=== PATIENT | female | born 1980 | race Caucasian/White ===

== ENCOUNTER 2024-09-03 19:36 | Emergency (ER) | payer SELFPAY ==
[2024-09-03 19:40] VITALS: BP 165/110
[2024-09-03 20:21] VITALS: BMI 25.8
[2024-09-03 22:20] VITALS: BP 155/92
[2024-09-03 22:26] LABS: Glucose - Point of Care 80 mg/dl (70-99)
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
[2024-09-04 00:41] LABS: % Basophils 0.5 % (0-2); % Eosinophils 3.2 % (0-6); % Immature Granulocytes 0.5 % (0-0.5); % Lymphocytes 34.7 % (20.5-51.1); % Monocytes 5.1 % (1.7-9.3); Absolute Basophils 0.1 10^3/uL (0-0.2); Absolute Eosinophils 0.4 10^3/uL (0-0.7); Absolute Immature Granulocytes 0.1 10^3/uL (0-0.05); Absolute Lymphocytes 4.3 10^3/uL (1.2-3.4); Absolute Monocytes 0.6 10^3/uL (0.1-0.6); Hematocrit 43.9 % (37.0-47.0); Hemoglobin 15.5 g/dL (12.0-16.0); Mean Corp Hgb Conc. 35.3 g/dL (33.0-37.0); Mean Corpuscular Volume 84.9 fL (81.0-99.0); Mean Platelet Volume 10.8 fL (7.4-10.4); Nucleated Red Blood Cells % 0 %; Platelet Count 270 10^3/uL (130-400); Red Blood Cell Count 5.17 10^6/uL (4.20-5.40); Red Cell Dist. Width 12.8 % (11.5-14.5); White Blood Cell Count 12.5 10^3/uL (4.8-10.8)
[2024-09-04 00:47] VITALS: BP 135/84
[2024-09-04 01:00] VITALS: BP 139/89
[2024-09-04 01:01] LABS: HCG, Serum Qualitative Screen Negative
[2024-09-04 01:06] LABS: ALT (SGPT) 38 U/L (0-35); AST (SGOT) 33 U/L (14-36); Albumin 4.7 g/dl (3.5-5.0); Alkaline Phosphatase 69 U/L (38-126); Blood Urea Nitrogen 16 mg/dl (7-17); Calcium 9.5 mg/dl (8.4-10.2); Carbon Dioxide 24 mmol/L (22-30); Chloride 108 mmol/L (98-107); Estimated Creatinine Clearance 72 ml/min; Glucose 75 mg/dl (70-99); Potassium 4.5 mmol/L (3.5-5.1); Sodium 140 mmol/L (135-145); Total Bilirubin 0.7 mg/dl (0.2-1.3); Total Protein 8.1 g/dl (6.3-8.2); eGFR > 60.00
[2024-09-04 01:46] VITALS: BP 148/91
== END 2024-09-04 01:55 | disposition home or self-care (01) ==
LOC: EMR 19:36
PROVIDERS: EMERGENCY PHYSICIAN Student in an Organized Health Care Education/Training Program
DX: D17.0 Benign lipomatous neoplasm of skin and subcutaneous tissue of head, face and neck (principal); F41.9 Anxiety disorder, unspecified; F17.200 Nicotine dependence, unspecified, uncomplicated
CPT/HCPCS: 99284; 70490; 80053; 82962; 84703; 85025

== ENCOUNTER 2024-11-12 13:06 | Emergency (ER) | payer OTHER, SELFPAY ==
[2024-11-12 13:06] VITALS: BMI 29.9
[2024-11-12 13:19] VITALS: BP 129/88
[2024-11-12 14:17] LABS: Hematocrit 42.6 % (37.0-47.0); Hemoglobin 15.1 g/dL (12.0-16.0); Mean Corp Hgb Conc. 35.4 g/dL (33.0-37.0); Mean Corpuscular Volume 82.7 fL (81.0-99.0); Platelet Count 264 10^3/uL (130-400); Red Cell Dist. Width 13.2 % (11.5-14.5)
--- NOTE | 2024-11-12 14:20 | ED.GENMED ---
History of Present Illness
<Laura Blunt PA-C - Last Filed: 11/12/24 22:12>
General
Chief Complaint: Flank Pain
Source: patient
Exam Limitations: none
Time Seen by Provider: 11/12/24 14:00
History of Present Illness
History of Present Illness:
44yoF with a history of prurigo nodularis, anxiety, depression, and recent biopsy of neck mass that she has had for several years 2 days ago at [place] presenting for evaluation of multiple complaints. Patient reports having fevers and chills for
the past 7 to 10 days. She is unable to tell me when her last fever was but it was at least 24 hours ago. She has been having headache and vomiting since her neck biopsy a few days ago. She also reports joint pains and bilateral flank pain. She
felt very dehydrated yesterday so increase her fluid intake. She now feels like she is retaining water and both of her hands and feet are swollen today. She states she has not urinated at all today. She also feels short of breath and states she
thinks she may have walking pneumonia.
Patient's last ED visit was in August 2024 for a crisis evaluation. She had a CT scan of her neck during that visit which revealed 'a 3.9 x 1.3 x 4.5 cm circumscribed fat density within the posterior right cervical soft tissues which corresponds with
the indicated palpable abnormality and is consistent with a lipoma.'
Past History
<Laura Blunt PA-C - Last Filed: 11/12/24 22:12>
Past History
ED Past Medical History: GERD and Other (Nonspecific dermatitis, following with dermatology maintained on prednisone)
ED Past Surgical History: Cholecystectomy, Tonsilectomy (and adnoids) and Other (Sinus surgery, adenoids surgery)
Social History
Tobacco: Smoker
Alcohol: Occasional
Drug: None
Personal:
Living: with family
Employment: Employed (Physical therapist)
Family History
Family History: CAD, Cancer and Other (DM)
Phy Exam
<Laura Blunt PA-C - Last Filed: 11/12/24 22:12>
General Physical Exam
General Presentation: well appearing and no apparent distress
General Skin: warm and dry
General Habitus: normal
General Mental: alert
ENT Exam
ENT Exam: TM's normal, pharynx normal, neck supple and normocephalic
Eye Exam
Eye Exam: PERRL
Cardiovascular Exam
Cardiovascular Exam: regular rate/rhythm, no murmur and normal peripheral pulses
Pulmonary Exam
Pulmonary Exam: lungs clear, no respiratory distress, no rales, no crackles, no rhonchi and no wheezing
Gastrointestinal Exam
Gastrointestinal Exam: non tender, soft, non distended and other (+Bilateral CVA tenderness)
Neurological Exam
Neurological Exam: alert
[place] Coma Scale
Eye Opening: Spontaneous
Verbal Response: Oriented
Motor Response: Obeys Commands
GCS Total Score: 15
Skin Exam
Skin Exam: warm/dry and other (Mild nonpitting edema noted to bilateral hands and feet)
Psychiatric Exam
Psychiatric Exam: normal mood/affect
<Katie Lunsford DO - Last Filed: 11/12/24 19:52>
[place] Coma Scale
GCS Total Score: 15
Course
<Laura Blunt PA-C - Last Filed: 11/12/24 22:12>
Orders/Labs/Results
Orders:
Orders
11/12/24 13:49
Complete Blood Count/With Diff Urgent
Comprehensive Metabolic Panel Urgent
HCG, Serum Qualitative Screen Urgent
Comment: ADD ON
Lipase Urgent
Magnesium Urgent
Comment: ADD ON
TSH Urgent
Comment: ADD ON
11/12/24 14:19
Add On- LAB Urgent
Tests Added?: magnesium, TSH
Bladder Scan- Treatment ONCE
Cardiac Monitoring- Treatment ONCE
11/12/24 14:20
Electrocardiogram (*1) Urgent
Reason for Study: Shortness of Breath
EKG- Treatment ONCE
11/12/24 14:40
COVID-19 Antigen Urgent
Source: Nasal Swab
Influenza A+B Rapid Molecular Urgent
AAKASH Source: Nasal Swab
Specimen Description:
11/12/24 14:49
D-Dimer Urgent
Lyme Progressive Urgent
NT-proBNP Urgent
Troponin I Urgent
11/12/24 15:03
0.9% Sodium Chloride 1000 ml [Nss] 1,000 ml IV BOLUS
11/12/24 15:35
CT Pe/abd/pel W Urgent
Comment:
Reason For Exam: SOB, elevated D-dimer, bilateral flank pain
11/12/24 15:41
Add On- LAB Urgent
Tests Added?: qualitative HCG
11/12/24 16:01
Ketorolac [Toradol] 15 mg IV NOW STA
11/12/24 18:10
Urinalysis Reflex To Culture Urgent
Date Specimen was Collected: 11/12/24
Time Specimen was Collected: 18:03
Urine Microscopic Reflex Cult Urgent
Urine Culture Urgent
AAKASH Source: U
Specimen Description:
Date Specimen was Collected: 11/12/24
Time Specimen was Collected: 18:03
11/12/24 18:52
Cephalexin Monohydrate [Keflex] 500 mg PO NOW STA
Abnormal Lab Results
11/12/24 11/12/24 11/12/24
13:49 14:49 18:10
Abs Immat Gran (auto) 0.3 H 10^3/uL
(0-0.05)
Immature Gran % 5.2 H %
(0-0.5)
D-Dimer 1.92 H ug/mlFEU
(0.00-0.50)
Glucose 117 H mg/dl
(70-99)
AST 38 H U/L
(14-36)
ALT 77 H U/L
(0-35)
Ur Occult Blood Reflex 1+ A
(Negative)
Leukocyte Esterase Rfl 2+ A
(Negative)
Urine Bacteria (Reflex) Few A
(Negative)
Urine Albumin (Reflex) 2+ A
(Neg - Trace)
11/12/24 13:49
11/12/24 13:49
Vital Signs
Initial and Last Documented VS:
Initial Vital Signs
Temp Pulse Resp BP Pulse Ox
98.3 F 101 18 129/88 100
11/12/24 13:19 11/12/24 13:19 11/12/24 13:19 11/12/24 13:19 11/12/24 13:19
Last Documented Vital Signs
Temp Pulse Resp BP Pulse Ox
98.4 F 88 21 107/66 100
11/12/24 16:41 11/12/24 17:00 11/12/24 17:00 11/12/24 17:00 11/12/24 17:00
<Katie Lunsford, DO - Last Filed: 11/12/24 19:52>
Orders/Labs/Results
Orders:
Orders
11/12/24 13:49
Complete Blood Count/With Diff Urgent
Comprehensive Metabolic Panel Urgent
HCG, Serum Qualitative Screen Urgent
Comment: ADD ON
Lipase Urgent
Magnesium Urgent
Comment: ADD ON
TSH Urgent
Comment: ADD ON
11/12/24 14:19
Add On- LAB Urgent
Tests Added?: magnesium, TSH
Bladder Scan- Treatment ONCE
Cardiac Monitoring- Treatment ONCE
11/12/24 14:20
Electrocardiogram (*1) Urgent
Reason for Study: Shortness of Breath
EKG- Treatment ONCE
11/12/24 14:40
COVID-19 Antigen Urgent
Source: Nasal Swab
Influenza A+B Rapid Molecular Urgent
AAKASH Source: Nasal Swab
Specimen Description:
11/12/24 14:49
D-Dimer Urgent
Lyme Progressive Urgent
NT-proBNP Urgent
Troponin I Urgent
11/12/24 15:03
0.9% Sodium Chloride 1000 ml [Nss] 1,000 ml IV BOLUS
11/12/24 15:35
CT Pe/abd/pel W Urgent
Comment:
Reason For Exam: SOB, elevated D-dimer, bilateral flank pain
11/12/24 15:41
Add On- LAB Urgent
Tests Added?: qualitative HCG
11/12/24 16:01
Ketorolac [Toradol] 15 mg IV NOW STA
11/12/24 18:10
Urinalysis Reflex To Culture Urgent
Date Specimen was Collected: 11/12/24
Time Specimen was Collected: 18:03
Urine Microscopic Reflex Cult Urgent
Urine Culture Urgent
AAKASH Source: U
Specimen Description:
Date Specimen was Collected: 11/12/24
Time Specimen was Collected: 18:03
11/12/24 18:52
Cephalexin Monohydrate [Keflex] 500 mg PO NOW STA
Abnormal Lab Results
11/12/24 11/12/24 11/12/24
13:49 14:49 18:10
Abs Immat Gran (auto) 0.3 H 10^3/uL
(0-0.05)
Immature Gran % 5.2 H %
(0-0.5)
D-Dimer 1.92 H ug/mlFEU
(0.00-0.50)
Glucose 117 H mg/dl
(70-99)
AST 38 H U/L
(14-36)
ALT 77 H U/L
(0-35)
Ur Occult Blood Reflex 1+ A
(Negative)
Leukocyte Esterase Rfl 2+ A
(Negative)
Urine Bacteria (Reflex) Few A
(Negative)
Urine Albumin (Reflex) 2+ A
(Neg - Trace)
11/12/24 13:49
11/12/24 13:49
Vital Signs
Initial and Last Documented VS:
Initial Vital Signs
Temp Pulse Resp BP Pulse Ox
98.3 F 101 18 129/88 100
11/12/24 13:19 11/12/24 13:19 11/12/24 13:19 11/12/24 13:19 11/12/24 13:19
Last Documented Vital Signs
Temp Pulse Resp BP Pulse Ox
98.4 F 88 21 107/66 100
11/12/24 16:41 11/12/24 17:00 11/12/24 17:00 11/12/24 17:00 11/12/24 17:00
<Laura Blunt PA-C - Last Filed: 11/12/24 22:12>
MDM/Problems Addressed
Differential Diagnosis Includes:
44yoF here multiple complaints including fevers x 7-10 days, joint pains, bilateral flank, SOB, decreased urination, and hand/foot swelling. VSS. She is nontoxic-appearing. Lungs are clear to auscultation and there are no signs of respiratory
distress. There is very mild nonpitting edema to dorsum of hands and feet. Bilateral CVA tenderness noted. Differential diagnosis includes but is not limited to: UTI, pyelonephritis, viral illness, pneumonia, dehydration
Initial ED plan: Check CBC, CMP, Lyme testing, D-dimer, troponin, BNP, EKG, UA, and CXR vs. CT depending on D-dimer results.
<Laura Blunt PA-C - Last Filed: 11/12/24 22:12>
*Pulse Oximetry
SaO2: 100
Oxygen Mode of Delivery: Room air
Patient hypoxic: no (100%)
*EKG
Interpreted by ED Provider?: Yes
EKG Intrepretation Date: 11/12/24
Heart Rate: 93
Rate: normal
Rhythm: sinus
Patterson: normal axis
Interval: normal interval
QRS Pattern: normal QRS
Ischemia: no ischemia
*Critical Care Note
Total Time (30-74mins, 75-104mins- exclusive of procedures): Not Applicable
<Laura Blunt PA-C - Last Filed: 11/12/24 22:12>
Update Note
Update Note:
White count, renal function, electrolytes are normal. Mild transaminitis noted which is consistent with prior labs. EKG shows normal sinus rhythm without ischemic changes and both troponin and BNP are normal. D-dimer elevated and CTA CAP added.
Imaging is negative for acute findings other than a probable simple right ovarian cyst. UA with 2+ leukocytes. Given flank pain and subjective fever, will cover with Keflex. She was advised to follow-up with her PCP as well as rheumatology. ED
return precautions reviewed. Patient discharged stable condition.
ED Attending Note
<Laura Blunt PA-C - Last Filed: 11/12/24 22:12>
-
Portions of this chart may have been created with voice recognition software.� Occasional wrong word or��sound alike� substitutions may have occurred due to the inherent limitations of voice recognition software.
<Katie Lunsford DO - Last Filed: 11/12/24 19:52>
ED Attending Note
Patient seen and examined by attending physician: Yes
I performed the substantive portion of visit, reviewed & personally made and approve the management plan that is documented in note by myself or GEM.: Yes
I performed a history and physical exam of patient and discussed management with resident, I reviewed resident's note and agree with documented findings and plan of care.: Yes
ED Attending Note:
44-year-old female with history of an autoimmune disorder presenting to the emergency department for multiple complaints. Patient reports in the past 10 days she has been having intermittent fevers, which resolved yesterday. In the past 2 days has
had increasing fatigue and now swelling to her extremities with diffuse pain to her joints. She felt dehydrated, so was drinking a lot of water, but now feels like she is retaining fluid. She also has flank pain, left greater than right and is
concerned that 'kidney failure '. She reports recent history of a neck mass, which was biopsied 2 days ago at [place]. Additionally reports some shortness of breath, denies cough, however reports that she has had pneumonia in the past without
any cough. She reports that she is usually very active, has been laying around the house. Denies any known sick contacts. Vital signs on arrival significant for mild tachycardia.
On exam patient is in no acute distress, nontoxic. On pulmonary exam, no increased work of breathing, lungs clear to auscultation. Heart rate is regular. Tenderness to the left flank, no overlying skin changes. No tenderness to the abdomen.
Generalized swelling to the extremities, nonpitting. Chronic rash from patient's known autoimmune disease. Right-sided neck mass, without any erythema or warmth status post biopsy. Patient with multiple complaints, unclear etiology of myriad of
symptoms. Regarding her shortness of breath, will obtain chest x-ray imaging. Also plan for D-dimer. She notes fever, currently afebrile and nontoxic with lower suspicion for systemic infection. Regarding swelling and flank pain, labs obtained
prior to my assessment, normal renal function without concern for acute renal failure. CHF is a consideration, again pending BNP and chest x-ray. Symptoms could also be attributed to possible autoimmune disease, diffuse joint pain and swelling.
Plan for CT imaging of the abdomen pelvis with flank pain and swelling.
18:30 -patient's workup is grossly unremarkable. She did have a positive dimer which prompted a CT of her chest. No abnormality on CT chest or abdomen. Urine does show possible sign of UTI. Will treat. Otherwise patient remains hemodynamically
stable, received some IV fluids and is feeling slightly improved. Feel stable for discharge. Advising outpatient rheumatology follow-up past component of her autoimmune disease. Return precautions discussed
Discharge Plan
Departure
Patient Disposition: Home (Routine Discharge)
Date of Disposition: 11/12/24
Time of Disposition: 18:51
Patient with high blood pressure during this ER visit?: No
Discharge Problem:
Urinary tract infection, Arthralgia
Instructions: Urinary tract infections in adults, Muscle, joint, and bone pain - Discharge instructions
Prescriptions:
New
cephalexin 500 mg capsule
500 mg PO Q6H 7 Days Qty: 27 0RF
No Action
fexofenadine-pseudoephedrine [Kimberlee-D 24 Hour] 1 EACH tablet extended release 24 hr
1 ea PO DAILY
amoxicillin-pot clavulanate 1 TABLET tablet
1 tab PO Q12 Qty: 20 0RF
loperamide [Imodium] 2 mg Capsule
2 mg PO Q6H PRN (Reason: diarrhea)
Nexplanon 68 mg Implant
1 implant SUBDERMAL ONCE
Referrals:
Charles Haynes, DO [Consulting Staff, Rheumatology]
NONE,* [Family Provider, Internal Medicine]
Activity Restrictions/Additional Instructions:
Take antibiotics as prescribed. You may take Tylenol and ibuprofen as needed for joint pain.
Please follow-up with your family doctor and rheumatology. You should also follow-up with gynecology for the probable ovarian cyst on today's CT scan.
Return to the ER with any new or worsening symptoms.
Interventions
Interventions:
*Risk Screen - Suicide Last Done: 11/12/24 13:19
*General Assessment Last Done: 11/12/24 14:58
*Neglect/Abuse Screening Last Done: 11/12/24 13:19
*ED- Fall Risk Assessment Last Done: 11/12/24 14:56
*ED COVID-19 Vaccine History Last Done: 11/12/24 14:56
*Nursing Disposition Last Done: 11/12/24 18:59
PB-Oowquv-Pzmccatqsi Assessment Last Done: 11/12/24 14:31
ED-Female Genitourinary Assessment Last Done: 11/12/24 14:31
Discharge Date and Time
Discharge Date/Time: 11/12/24 19:00
Print Language: CZECH
[2024-11-12 14:22] LABS: Nucleated Red Blood Cells % 0 %
[2024-11-12 14:25] LABS: ALT (SGPT) 77 U/L (0-35); AST (SGOT) 38 U/L (14-36); Albumin 4.0 g/dl (3.5-5.0); Alkaline Phosphatase 87 U/L (38-126); Blood Urea Nitrogen 13 mg/dl (7-17); Calcium 9.3 mg/dl (8.4-10.2); Carbon Dioxide 24 mmol/L (22-30); Glucose 117 mg/dl (70-99); Lipase 113 U/L (23-300); Total Protein 7.4 g/dl (6.3-8.2); eGFR > 60.00
[2024-11-12 14:28] VITALS: BP 131/79
[2024-11-12 14:40] LABS: Chloride 106 mmol/L (98-107); Magnesium 2.0 mg/dl (1.6-2.3); Potassium 4.0 mmol/L (3.5-5.1); Sodium 136 mmol/L (135-145)
[2024-11-12 15:00] VITALS: BP 126/76
[2024-11-12 15:03] LABS: COVID-19 Antigen Negative (Negative)
[2024-11-12] MEDS: NSS 1000 IV (15:06)
[2024-11-12 15:12] LABS: D-Dimer 1.92 ug/mlFEU (0.00-0.50)
[2024-11-12 15:25] LABS: Troponin I < 0.012 ng/ml
[2024-11-12 15:53] LABS: TSH 1.06 uIU/ml (0.47-4.68)
[2024-11-12 15:56] LABS: HCG, Serum Qualitative Screen Negative
[2024-11-12 16:00] VITALS: BP 111/70
[2024-11-12] MEDS: TORADOL 15 MG IV (16:05)
[2024-11-12 17:00] VITALS: BP 107/66
[2024-11-12 18:16] LABS: Urine Character Clear (Clear)
[2024-11-12 18:23] LABS: Urine Red Blood Cell 0-2 /HPF (0-2); Urine Squamous Cell 21-25 /LPF (Few)
[2024-11-12] MEDS: KEFLEX 500 MG PO (18:59)
[2024-11-16 13:36] LABS: Lyme Antibody Screen, EIA Equivocal (Negative)
== END 2024-11-12 19:00 | disposition home or self-care (01) ==
LOC: EMR 13:06
PROVIDERS: Physician Assistant; EMERGENCY PHYSICIAN Student in an Organized Health Care Education/Training Program
DX: N39.0 Urinary tract infection, site not specified (principal); M25.50 Pain in unspecified joint; F17.200 Nicotine dependence, unspecified, uncomplicated; Z90.49 Acquired absence of other specified parts of digestive tract; Z11.52 Encounter for screening for COVID-19
CPT/HCPCS: 96374; 96361; 99284; 71275; 74177; 80053; 81003; 81015; 83690; 83735; 83880; 84443; 84484; 84703; 85025; 85379; 86617; 86618; 87086; 87502; 87811; 93005; Q9967

== ENCOUNTER 2024-12-11 16:17 | Emergency (ER) | payer OTHER, SELFPAY ==
[2024-12-11] VITALS (7 sets, daily range): BP systolic 128–151; BP diastolic 85–101; BMI 22.6
--- NOTE | 2024-12-11 16:33 | ED.GENMED ---
History of Present Illness
General
Chief Complaint: Post Operative Problem(s)
Source: patient
Exam Limitations: none
Time Seen by Provider: 12/11/24 16:20
History of Present Illness
History of Present Illness:
See MDM
Past History
Past History
ED Past Medical History: GERD and Other (Nonspecific dermatitis, following with dermatology maintained on prednisone)
ED Past Surgical History: Cholecystectomy, Tonsilectomy (and adnoids) and Other (Sinus surgery, adenoids surgery)
Social History
Tobacco: Smoker
Alcohol: Occasional
Drug: None
Personal:
Living: with family
Employment: Employed (Physical therapist)
Family History
Family History: CAD, Cancer and Other (DM)
Phy Exam
Physical Exam
Physical Exam:
See MDM
Course
Orders/Labs/Results
Orders:
Orders
12/11/24 16:31
CT Head W/o Iv Contrast Urgent
Comment:
Reason For Exam: headache, recent post neck surgery
CT Neck With Iv Contrast Urgent
Comment:
Reason For Exam: Neck pain, recent mass resection
Ketorolac [Toradol] 30 mg IV NOW STA
12/11/24 16:32
Test Result ONCE
12/11/24 16:40
Complete Blood Count/With Diff Urgent
Comprehensive Metabolic Panel Urgent
HCG, Serum Qualitative Screen Urgent
12/11/24 18:03
diazePAM [Valium Injection] 5 mg IV NOW STA
12/11/24 19:06
Morphine Sulfate 4 mg IV NOW STA
Abnormal Lab Results
12/11/24
16:40
Abs Immat Gran (auto) 0.1 H 10^3/uL
(0-0.05)
Immature Gran % 0.6 H %
(0-0.5)
Glucose 111 H mg/dl
(70-99)
AST 42 H U/L
(14-36)
12/11/24 16:40
12/11/24 16:40
Vital Signs
Initial and Last Documented VS:
Initial Vital Signs
Pulse
101
12/11/24 16:28
Last Documented Vital Signs
Pulse Resp BP Pulse Ox
90 14 143/96 99
12/11/24 18:00 12/11/24 18:00 12/11/24 18:00 12/11/24 18:00
MDM/Problems Addressed
Differential Diagnosis Includes:
Note:
CHIEF COMPLAINT(S)
Severe pain post-surgical removal of a neck tumor.
HISTORY OF PRESENT ILLNESS
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 The patient reports that postoperatively, she was
doing well upon returning home on Saturday and was fine on Saturday. However, on the following day, she began experiencing extreme pain, particularly on the right side of her head, behind the ear, and on top of her head. The pain is described as
severe, debilitating, and cuts into the area, although the incision itself does not hurt when touched. She states that she is unable to lay on or move her neck at all and is unable to find any position that provides comfort.
The patient reports numbness behind the ear. She has only taken 400 mg of ibuprofen for the pain, despite having been prescribed a stronger pain medication post-surgery, which she has not taken due to concerns about being incapacitated while needing
to care for her children. . The numbness remains unexplained by her surgical team, and she was advised to seek evaluation at the nearest hospital. The incision is located in the back of the R side of the neck.
PAST MEDICAL AND SURGICAL HISTORY
The patient had a recent surgical removal of a neck lipoma and associated lymph nodes.
MEDICATIONS
Ibuprofen 400 mg taken for pain relief.
REVIEW OF SYSTEMS
- Neurological: Reports extreme pain on the right side of the head, behind the ear, and top of the head; numbness behind the ear; blurred vision.
- Musculoskeletal: Unable to move neck, finds no position comfortable.
PHYSICAL EXAM
General: Alert, no acute distress.
Skin: Warm, dry.
Head: Normocephalic, atraumatic
Neck: Incision to right posterior neck without surrounding edema or skin changes
Eyes, Ears, Nose, Mouth, and Throat: Oral mucosa moist. Right TM clear. No tenderness to palpation of right mastoid
Cardiovascular: No signs of cyanosis
Respiratory: Respirations are non-labored.
Abdomen: Non-distended
Musculoskeletal: No deformities
Neurological: No focal neurological deficit observed.
Psychiatric: Cooperative, appropriate mood and affect.
PROBLEM LIST
Acute Problems:
- Post-surgical neck pain
- Numbness and blurred vision post-surgery
- Right-sided head pain
PLAN
Evaluate the cause of neurological symptoms including numbness and vision changes. Consider imaging studies or consult with neurology or the surgical team for further evaluation.
DIFFERENTIAL DIAGNOSIS
The Differential Diagnosis includes, in no particular order and is not limited to:
- Surgical site infection
- Nerve injury or neuropraxia
- Hematoma
- Postoperative inflammation
- Phantom pain
- Cervical radiculopathy
- Infection or cellulitis
- Drug side effect
- Cervical spine disorder
- Myofascial pain syndrome
SUMMARY OF ENCOUNTER
The patient, a 36-year-old female, presented to the emergency department with severe post-surgical pain following the recent removal of a neck lipoma. She experienced extreme pain on the right side of the head, behind the ear, and on top of her
head, along with numbness and blurred vision. A CT of the neck and head was performed to evaluate potential complications. The imaging showed no acute pathology, only post-surgical changes, and no evidence of an infection. The patient was afebrile,
and the external incision appeared clean and intact. The management plan included advising the patient to take her prescribed pain medication and emphasizing the importance of outpatient follow-up.
DISPOSITION
Discharge.
ASSESSMENT
Post-surgical pain and associated neurological symptoms without evidence of acute pathology on imaging.
EMERGENCY TREATMENTS ADMINISTERED
None explicitly administered in the emergency department.
PLAN
The patient was advised to take her prescribed pain medication as recommended by her surgeon. The importance of outpatient follow-up for continued assessment and management was discussed.
INDEPENDENT REVIEW OF LABS AND INTERPRETATION OF TESTS
- My independent interpretation of the CT of the neck and head showed no acute pathology, confirming post-surgical changes with no evidence of infection or discrete pillore collection.
PATIENT EDUCATION AND COUNSELING
The patient was counseled on the nature of post-surgical pain, the need to adhere to the prescribed analgesic regimen, and the significance of arranging outpatient follow-up.
FOLLOW-UP INSTRUCTIONS
The patient was advised on the importance of scheduling an outpatient follow-up appointment for further evaluation and management.
MEDICATION RECONCILIATION
The patient was advised to take her prescribed pain medication as per her surgeon�s instructions.
MEDICAL DECISION MAKING
- Number and Complexity of Problems Addressed: Chronic conditions affecting care include recent surgical removal of a neck lipoma and associated neurological symptoms post-surgery. Differential diagnosis considered included surgical site infection,
nerve injury or neuropraxia, hematoma, postoperative inflammation, phantom pain, cervical radiculopathy, infection or cellulitis, drug side effect, cervical spine disorder, and myofascial pain syndrome.
- Data:
- Category 1: My independent interpretation of the CT of the neck and head showed no acute pathology but confirmed expected post-surgical changes.
- Risk: Consideration of Admission/Observation: Escalation of care including admission/observation was considered given the complexity and risk of the patients presenting complaint and exam findings. However, ultimately I feel the patient is safe
for outpatient management with close follow-up. Reasoning: Work-up reassuring, does not reveal any acute life/organ-threatening processes, patients symptoms well-controlled upon reevaluation, reexamination is reassuring, vitals are stable, patient
agreeable with discharge, reliable for follow-up.
DIAGNOSIS
- Post-surgical pain (ICD-10: G89.18)
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
*Pulse Oximetry
Oxygen Mode of Delivery: Room air
Patient hypoxic: no
*Critical Care Note
Total Time (30-74mins, 75-104mins- exclusive of procedures): Not Applicable
ED Attending Note
-
Portions of this chart may have been created with voice recognition software.� Occasional wrong word or��sound alike� substitutions may have occurred due to the inherent limitations of voice recognition software.
Discharge Plan
Departure
Patient Disposition: Home (Routine Discharge)
Date of Disposition: 12/11/24
Time of Disposition: 19:26
Patient with high blood pressure during this ER visit?: Yes
Discharge Problem:
Post-operative pain
Instructions: Postoperative Pain (DC), BLOOD PRESSURE
Prescriptions:
No Action
fexofenadine-pseudoephedrine [Kimberlee-D 24 Hour] 1 EACH tablet extended release 24 hr
1 ea PO DAILY
amoxicillin-pot clavulanate 1 TABLET tablet
1 tab PO Q12 Qty: 20 0RF
loperamide [Imodium] 2 mg Capsule
2 mg PO Q6H PRN (Reason: diarrhea)
Nexplanon 68 mg Implant
1 implant SUBDERMAL ONCE
cephalexin 500 mg capsule
500 mg PO Q6H 7 Days Qty: 27 0RF
doxycycline hyclate 100 mg tablet
100 mg PO BID Qty: 42 0RF
Referrals:
Rosario Mott DO [Family Provider, Family Practice]
Activity Restrictions/Additional Instructions:
Please return for any worsening symptoms.
You may return at any time if you have further concerns.
Please follow up with your surgeon at the first available appointment, preferably this week.
Thank you for choosing [facility].
Interventions
Interventions:
*Risk Screen - Suicide Last Done: 12/11/24 16:33
*General Assessment Last Done: 12/11/24 16:33
*Neglect/Abuse Screening Last Done: 12/11/24 16:33
*ED- Fall Risk Assessment Last Done: 12/11/24 16:33
*ED COVID-19 Vaccine History Last Done: 12/11/24 16:33
ED-Skin Assessment Last Done: 12/11/24 16:25
Discharge Date and Time
Print Language: MALTESE
[2024-12-11] MEDS: TORADOL 30 MG IV (16:43)
[2024-12-11 16:59] LABS: Hematocrit 38.4 % (37.0-47.0); Hemoglobin 13.5 g/dL (12.0-16.0); Mean Corp Hgb Conc. 35.2 g/dL (33.0-37.0); Mean Corpuscular Volume 81.9 fL (81.0-99.0); Nucleated Red Blood Cells % 0 %; Platelet Count 279 10^3/uL (130-400); Red Cell Dist. Width 13.0 % (11.5-14.5)
[2024-12-11 17:13] LABS: ALT (SGPT) 34 U/L (0-35); AST (SGOT) 42 U/L (14-36); Albumin 4.0 g/dl (3.5-5.0); Alkaline Phosphatase 84 U/L (38-126); Blood Urea Nitrogen 15 mg/dl (7-17); Calcium 9.7 mg/dl (8.4-10.2); Carbon Dioxide 24 mmol/L (22-30); Chloride 106 mmol/L (98-107); Estimated Creatinine Clearance 101 ml/min; Glucose 111 mg/dl (70-99); HCG, Serum Qualitative Screen Negative; Potassium 4.2 mmol/L (3.5-5.1); Sodium 136 mmol/L (135-145); Total Protein 7.1 g/dl (6.3-8.2); eGFR > 60.00
[2024-12-11] MEDS: VALIUM INJECTION 5 MG IV (18:34)
[2024-12-11] MEDS: MORPHINE SULFATE 4 MG IV (19:27)
== END 2024-12-11 20:15 | disposition home or self-care (01) ==
LOC: EMR 16:17
PROVIDERS: EMERGENCY PHYSICIAN Student in an Organized Health Care Education/Training Program; FAMILY PHYSICIAN Family Medicine
DX: G89.18 Other acute postprocedural pain (principal); R51.9 Headache, unspecified; R03.0 Elevated blood-pressure reading, without diagnosis of hypertension; K21.9 Gastro-esophageal reflux disease without esophagitis; F17.200 Nicotine dependence, unspecified, uncomplicated
CPT/HCPCS: 99284; 96374; 96375 ×3; 70450; 70491; 80053; 84703; 85025; Q9967